=== PATIENT | female | born 1965 | race Caucasian/White ===

== ENCOUNTER → 2016-10-22 | Outpatient (CLI) | payer OTHER ==
[~2016-10-22] MED LIST: ALPRAZOLAM PO; AMITRYPTYLINE; ATIVAN PO; AZITHROMYCIN250 MG; CYMBALTA PO; CYMBALTA30 MG PO; FLEXERIL PO; GLUCOPHAGE XR500 MG PO; GLUCOTROL PO; IBUPROFEN; IBUPROFEN PO; MEDROL PO; METFORMIN PO; NEURONTIN PO; ORUDIS75 M1 PO; PRAVACHOL PO; ROBAXIN PO; TOPROL XL PO; TYLENOL #3 PO; ULTRAM PO; [UNRECOGNIZED DRUG - REMARK] PO
--- NOTE | ~2016-10-22 | CR219 ---
[facility]. 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 Ordering Physician: Gema Guzman A.P.R.N. Primary Care Physician: Alea Kyle M.D. MEDICAL IMAGING REPORT This report is preliminary unless electronic signature is present. EXAM Sacrum and coccyx 3 views, 10/22/2016 HISTORY Sacrum and coccygeal pain status post fall down stairs 1 year ago. Persistent pain. FINDINGS 3 views of the sacrum and coccyx demonstrate no fracture. The bones are normally mineralized. There is no soft tissue abnormality. IMPRESSION Negative sacrum and coccyx. Dictated by... Hardy Montaño M.D. THIS IS AN ELECTRONICALLY VERIFIED REPORT Hardy Montaño M.D. at 10/23/2016 2:38 PM GUERA/mitzy TD: 10/23/2016 02:54 JOB #: [id number] MEDICAL IMAGING REPORT Page 1 of 1
--- NOTE | ~2016-10-22 | CR181 ---
[facility] A Service of [facility] & [facility] RADIOLOGY TEXT RESULTS PATIENT: SHIKHA BEAVERS LOCATION: [facility] : 63 UNIT #: [id number] AGE: [address]: Gema Guzman ENVIRONMENTAL PROGRAMS MANAGER SEX: F ORDER DR: [id number] [address] [address] [id number] O MR#: [id number] Acc #: [id number] NAME: SHIKHA BEAVERS : 1965 SEX: F STUDY DATE/TIME: 10/22/2016 16:10 UNIT: [facility] ROOM: STUDY DESCRIPTION: CR Lumbar Spine 2 or 3 Views Attending Physician: Gema Guzman A.P.R.N. Ordering Physician: Gema Guzman A.P.R.N. Primary Care Physician: Alea Kyle M.D. MEDICAL IMAGING REPORT This report is preliminary unless electronic signature is present. EXAM Lumbar spine 3 views, 10/22/2016 HISTORY Low back pain status post fall down steps 1 year ago. Persistent pain. FINDINGS 3 views of the lumbar spine demonstrate no fracture. The posterior vertebral body line is intact and there is no anterolisthesis or retrolisthesis. The disc spaces are normally maintained. There is no soft tissue abnormality. Small anterior osteophytes are seen from L3 through L5 and there is scoliosis of the lumbar spine centered about L3. IMPRESSION Minimal degenerative change in the lumbar spine. Lumbar spine dextroscoliosis. No acute abnormality. Dictated by... Hardy Montaño M.D. THIS IS AN ELECTRONICALLY VERIFIED REPORT Hardy Montaño M.D. at 10/23/2016 2:38 PM GUERA/mitzy TD: 10/23/2016 02:51 JOB #: [id number] MEDICAL IMAGING REPORT Page 1 of 1
== END | disposition home or self-care (01) ==
LOC: SRAD 15:59
DX: M53.3 Sacrococcygeal disorders, not elsewhere classified (principal); M41.9 Scoliosis, unspecified
CPT/HCPCS: 72100; 72220